=== PATIENT | female | born 1975 | race Caucasian/White ===

== ENCOUNTER 2016-12-22 21:23 | Inpatient (IN) | payer MEDICAID ==
[~2016-12-22] VITALS: Ht 157.5 cm; Wt 64.5 kg
[2016-12-22 22:18] LABS: BASOPHIL % 0.7 % (0-2); PLATELET COUNT 278 x10^3mcL (130-400); RED CELL DISTRIBUTION WIDTH 12.8 % (11.5-14.5)
[2016-12-22 22:38] LABS: CALCIUM 8.9 mg/dL (8.5-10.1); CARBON DIOXIDE 30.1 mmol/L (21-32); CHLORIDE SERUM 103 mmol/L (98-107); CREATININE SERUM 0.8 mg/dL (0.6-1.0); GFR1 > 60 mL/min; GLUCOSE SERUM 137 mg/dL (74-106); POTASSIUM SERUM 3.5 mmol/L (3.5-5.1); SODIUM SERUM 138 mmol/L (136-145)
[2016-12-22 22:42] LABS: ALKALINE PHOSPHATASE 59 U/L (46-116); ALT/SGPT 44 U/L (14-59); AST/SGOT 18 U/L (15-37); BILIRUBIN TOTAL 0.3 mg/dL (0.20-1.00); LIPASE 418 IU/L (73-393); TOTAL PROTEIN, SERUM 7.6 g/dL (6.4-8.2)
[2016-12-23 01:03] VITALS: BP 110/67
[2016-12-23 02:11] LABS: T3 TOTAL 1.35 ng/mL
[2016-12-23 02:16] LABS: T4(THYROXINE) 8.7 ug/dL (4.7-13.3)
[2016-12-23 02:17] LABS: UA SPECIFIC GRAVITY >=1.030 (1.005-1.035); microscopic required? YES; urine erythrocyte 2+ (NEGATIVE)
[2016-12-23 02:32] LABS: AMPHETAMINE QUAL UR NONE DETECTED (NEG <=1000)
[2016-12-23 05:36] VITALS: BP 102/51
[2016-12-23 09:35] VITALS: BP 116/69
== END 2016-12-23 13:53 | disposition left against medical advice (07) | DRG 251 ==
LOC: ED 21:23 → DU 23:58
PROVIDERS: Emergency Medicine; ADMIT Family Medicine
DX: R10.11 Right upper quadrant pain (principal); N17.0 Acute kidney failure with tubular necrosis; K81.9 Cholecystitis, unspecified; K85.90 Acute pancreatitis without necrosis or infection, unspecified
CPT/HCPCS: 83880; 84439; J0290; J0295; J1885; J2405; J3490; J7030; Q0092